=== PATIENT | male | born 1960 | race Caucasian/White ===

== ENCOUNTER → 2017-07-26 | Outpatient (CLI) | payer OTHER ==
[2017-07-26 09:00] LABS: BUN/CREATININE RATIO 10 (0-10)
== END ==
LOC: CT 07:44
PROVIDERS: Internal Medicine Cardiovascular Disease
DX: I83.12 Varicose veins of left lower extremity with inflammation (principal); I73.9 Peripheral vascular disease, unspecified; K76.0 Fatty (change of) liver, not elsewhere classified; I70.201 Unspecified atherosclerosis of native arteries of extremities, right leg
CPT/HCPCS: 36415; 75635; 80048; J7050; Q9963

== ENCOUNTER → 2021-01-12 | Outpatient (CLI) | payer OTHER ==
[~2021-01-12] MED LIST: ASPIRIN EC81 MG PO; LIDOCAINE PAIN1 EACH TP; MOBIC7.5 MG PO; NORFLEX 100 MG100 MG PO; Voltaren Gel 1 % TOP
== END ==
LOC: EXRD 13:04
DX: M54.5 Low back pain (principal); M47.814 Spondylosis without myelopathy or radiculopathy, thoracic region; M51.34 Other intervertebral disc degeneration, thoracic region
CPT/HCPCS: 72100

== ENCOUNTER 2021-04-25 13:38 | Emergency (ER) | payer OTHER ==
[~2021-04-25 13:38] MED LIST changes: -LIDOCAINE PAIN1 EACH TP; -MOBIC7.5 MG PO
[2021-04-25 14:46] LABS: HEMOGLOBIN 14.9 gm/dl (14.0-17.5); RED BLOOD COUNT 5.06 M/UL (4.20-5.50); WHITE BLOOD COUNT 14.7 K/UL (4.5-11.0)
[2021-04-25 15:10] LABS: BUN/CREATININE RATIO 15 (0-10)
[2021-04-25] MEDS ORDERED: MOBIC7.5 MG PO (16:53)
[2021-04-25] MEDS ORDERED: LIDOCAINE PAIN1 EACH TP (16:53)
== END 2021-04-25 17:30 | disposition home or self-care (01) ==
LOC: ER1 13:38
PROVIDERS: Physician Assistant
DX: M54.5 Low back pain (principal); E11.9 Type 2 diabetes mellitus without complications; I10 Essential (primary) hypertension; J44.9 Chronic obstructive pulmonary disease, unspecified; E78.5 Hyperlipidemia, unspecified; F17.210 Nicotine dependence, cigarettes, uncomplicated
CPT/HCPCS: 72131; 80048; 85025; 86140; 96374; 99284; J2270

== ENCOUNTER 2021-04-27 17:06 | Emergency (ER) | payer OTHER ==
[~2021-04-27 17:06] MED LIST changes: +LIDOCAINE PAIN1 EACH TP; +MOBIC7.5 MG PO
[2021-04-27 19:06] LABS: HEMOGLOBIN 16.6 gm/dl (14.0-17.5); RED BLOOD COUNT 5.32 M/UL (4.20-5.50)
[2021-04-27 19:07] LABS: WHITE BLOOD COUNT 18.4 K/UL (4.5-11.0)
[2021-04-27 19:23] LABS: BUN/CREATININE RATIO 14 (0-10)
== END 2021-04-27 22:00 | disposition home or self-care (01) ==
LOC: ER1 17:06
PROVIDERS: Emergency Medicine
DX: R07.9 Chest pain, unspecified (principal); R00.0 Tachycardia, unspecified; I10 Essential (primary) hypertension; E78.5 Hyperlipidemia, unspecified; J44.9 Chronic obstructive pulmonary disease, unspecified; F17.210 Nicotine dependence, cigarettes, uncomplicated; Z20.822 Contact with and (suspected) exposure to COVID-19; E11.9 Type 2 diabetes mellitus without complications
CPT/HCPCS: 0240U; 71045; 80053; 82550; 82553; 83690; 83735; 83874; 84100; 84484; 85025; 85610; 85730; 93005; 99285

== ENCOUNTER → 2022-02-22 | Outpatient (CLI) | payer OTHER | LOC: KOH-I 02-04 11:30 | DX: F17.210 Nicotine dependence, cigarettes, uncomplicated (principal); R91.1 Solitary pulmonary nodule | CPT/HCPCS: 71271 ==